=== PATIENT | female | born 1940 | race Caucasian/White ===

== ENCOUNTER 2018-10-04 09:43 | Day surgery (SDC) | payer OTHER ==
[2013-06-11 17:07] VITALS: BMI 32.5
[2018-10-04 11:35] VITALS: TEMP 98.2
[2018-10-04] MEDS ORDERED: LIDOCAINE 1% 20 ML MDV ID STA (11:35)
[2018-10-04] MEDS ORDERED: LIDOCAINE 1% 20 ML MDV ID ONE (12:08)
[2018-10-04] MEDS ORDERED: VERSED ONE (12:15)
[2018-10-04] MEDS ORDERED: DIPRIVAN 20 ML VIAL IVP ONE (12:15)
[2018-10-04 14:20] VITALS: BP 107/71
--- NOTE | 2018-10-05 13:11 | OP ---
PROCEDURE: COLONOSCOPY TO THE CECUM. ENDOSCOPIST: Christine HAQ M.D. INDICATION: HISTORY OF POLYPS INSTRUMENT: PCFH-190. MEDICATION: PER ANESTHESIA. PROCEDURE: The patient was positioned for colonoscopy. The digital rectal exam was negative. The colonoscope was inserted through the anus and advanced to the cecum. The cecum was identified using the ileocecal valve and the appendiceal orifice as landmarks. The scope was slowly withdrawn through an adequately prepped colon. Diverticulosis is noted in the left colon. No other abnormalities were noted. The retroflex exam was otherwise negative. The patient tolerated the procedure without immediate complication. Withdraw time 6 minutes and 55 seconds. PLAN: 1. Repeat as needed CC: Dr. Aleksander SNYDER
== END 2018-10-04 13:15 | disposition home or self-care (01) ==
LOC: SURG 09:43
PROVIDERS: ATTEND Internal Medicine Gastroenterology
DX: Z86.010 Personal history of colon polyps (principal); K57.90 Diverticulosis of intestine, part unspecified, without perforation or abscess without bleeding
CPT/HCPCS: 00812; G0105